=== PATIENT | male | born 1980 | race Caucasian/White ===

== ENCOUNTER 2016-12-13 21:39 | Inpatient (IN) | payer OTHER ==
--- NOTE | ~2016-12-13 | PA ---
Unit #: [id number] #: [id number] Patient: JAMES QUINN [id number] [facility] [address] [place] [address] [id number] I MR#: [id number] NAME: JAMES QUINN ROOM: P214 Age: 36 Sex: M Admission Date: 12/13/2016 : 1980 Date of Assessment: 12/14/2016 Attending Physician: Nico Desai M.D. Admitting Physician: Nico Desai M.D. Primary Care Physician: Primary Care Physician No PSYCHIATRIC ASSESSMENT INFORMANTS The patient reliability, fair informant and chart reliability, good. CHIEF COMPLAINT Heroin addiction and heroin withdrawal. HISTORY OF PRESENT ILLNESS Mr. James Quinn is a 36-year-old male, presented with the above-mentioned complaint. The patient reports a history of outpatient services in the past for depression. Lives at home with his and son. The patient reports heroin use, average about 1 g IV. The patient reported consistently used over the last 30 days. The patient reported last use on 12/12/2016. The patient scored initial COWS of 14. The patient denied any current suicidal or homicidal ideation. Denied any psychotic symptom. The patient reported tobacco use, age of onset 12; alcohol, age of onset 12; marijuana, age of onset 10; crack cocaine, age of onset 20; LSD, age of onset 14; opioid, age of onset 29; amphetamine use, age of onset 18; and benzodiazepine, age of onset 14. The patient reported currently having withdrawal symptoms. No history of blackout. History of IV drug use. No history of HIV or hepatitis. Withdrawal symptoms such as abdominal cramping, muscle cramping, diaphoresis, diarrhea, irritability, nervousness, poor appetite, poor concentration, restlessness, rhinorrhea, sleep problems, and tremors. PAST PSYCHIATRIC HISTORY Remarkable for history of outpatient treatment as mentioned above. No history of any inpatient treatment. FAMILY HISTORY AND SOCIAL HISTORY The patient has a good support system from family. No history of abuse. MEDICAL HISTORY Unremarkable for any chronic medical illness. Musculoskeletal; muscle strength and tone, no atrophy or abnormal movement. Gait normal. MEDICATION HISTORY None. ALLERGIES No known drug allergies. SUBSTANCE ABUSE HISTORY Unit #: [id number] #: [id number] Patient: JAMES QUINN Please see above. REVIEW OF SYSTEMS HEENT: Eyes, clear. Ears, nose, mouth, and throat; clear. CARDIOVASCULAR: Unremarkable. RESPIRATORY: Unremarkable. GI: Unremarkable. : Unremarkable. SKIN: Unremarkable. LYMPH NODE: Unremarkable. NEUROLOGIC: Unremarkable. ENDOCRINE: Unremarkable. HEMATOLOGIC: Unremarkable. ALLERGIC/IMMUNOLOGIC: Unremarkable. MUSCULOSKELETAL: Muscle strength and tone, no atrophy or abnormal movement. Gait normal except as mentioned above. MENTAL STATUS EXAMINATION CONSTITUTIONAL: Measurement of vital signs; temperature 97.5, heart rate 80, respiratory rate 20, and blood pressure 137/91. Height 6 feet and weight 140 pounds. GENERAL APPEARANCE: The patient dressed casually. The patient did not show any facial deformity. MUSCULOSKELETAL: Please see above. PSYCHIATRIC EXAMINATION Description of speech; regular rate, normal volume, normal articulation, coherent, and spontaneous. Description of thought process, goal directed. Description of association, intact. Description of abnormal psychotic thinking; the patient denied any hallucination or delusions, but mood lability, withdrawal symptom, and substance abuse. Description of the patient's judgment: Concerning everyday activity, poor. Social situation, poor. Concerning psychiatric condition, poor. Complete mental status examination; oriented in time, place, and person. Recent and remote memory, fair. Attention span and concentration, fair. Language, able to name object and repeat phrases. Fund of knowledge, aware of current event and passive vocabulary intact. Mood and affect, sad and dysphoric. Insight and judgment, fair to poor. ASSETS AND LIABILITIES Assets, the patient is articulate and able to take care of his ADL. Liability, history of substance abuse and depression. ADMITTING DIAGNOSES Psychiatric: Opioid use disorder, severe, F11.20 and mood disorder, not otherwise specified, F32.9. Secondary diagnosis: Deferred. Medical diagnosis: None. Stressors: Psychosocial stressors. PSYCHIATRIC PLAN AND TREATMENT GOAL AND DISCHARGE PLAN 1. Advised to admit the patient on the inpatient unit. Provide safe, supportive, and structured environment. 2. Ordered labs; CBC, CMP, UA, and UDS. Unit #: [id number] #: [id number] Patient: JAMES QUINN 3. Detox protocol and detox monitoring. If needed, consider medication for depression. 4. The patient to attend all the programing, group therapy, individual therapy, and medication management. TREATMENT GOAL To attain euthymic mood, gain insight into his problem, and learn coping skills. DISCHARGE PLAN Plan to stabilize the patient and consider followup in outpatient program. ESTIMATED LENGTH OF STAY 3 to 5 days. Dictated by... Keri Cheema/bj TD: 12/14/2016 17:33 JOB #: [id number] PSYCHIATRIC ASSESSMENT Page 1 of 1 X Nico Desai MD X PSYCHIATRIC ASSESSMENT
--- NOTE | ~2016-12-13 | DS ---
Unit #: [id number] #: [id number] Patient: JAMES DONOHUE [id number] [facility] [address] [place] [address] [id number] I MR#: [id number] NAME: JAMES DONOHUE ROOM: [facility] Age: 36 Sex: M Admission Date: 12/13/2016 : 1980 Discharge Date: 12/15/2016 Attending Physician: Nico Desai M.D. Primary Care Physician: Primary Care Physician No DISCHARGE SUMMARY REASON FOR ADMISSION Heroin addiction. DIAGNOSTIC STUDIES LABORATORY DATA: Urine drugs screen positive for marijuana and opiate. HOSPITAL COURSE The patient was admitted to inpatient unit on December 13 and discharged on 12/15/2016. The patient was treated with group therapy, individual therapy, medication management, detox monitoring, and detox protocol. The patient responded well with the above modalities of treatment. Subsequently the patient was discharged with a plan to follow up in outpatient program. DISCHARGE MEDICATIONS None. DISCHARGE DIAGNOSES PSYCHIATRIC: Opiate use disorder, moderate to severe, F11.20 Cannabis abuse, moderate, F12.20. Mood disorder not otherwise specified, F32.9. SECONDARY: Deferred. MEDICAL: None. STRESSORS: Psychosocial stressor. FOLLOWUP CARE The patient to follow up in outpatient clinic as per social service coordinator. CONDITION ON DISCHARGE The patient pleasant, cooperative. Denied any psychotic symptom or any suicidal ideation. behavior. PROGNOSIS Guarded. DIET AND ACTIVITY As tolerated. Dictated by... Nico Desai M.D. SZC/bzg Unit #: [id number] #: [id number] Patient: JAMES DONOHUE TD: 12/16/2016 07:05 JOB #: [id number] DISCHARGE SUMMARY Page 1 of 1 X Nico Desai MD X DISCHARGE SUMMARY
--- NOTE | ~2016-12-13 | HP ---
Unit #: [id number] #: [id number] Patient: JAMES DONOHUE [id number] [facility] [address] [place] [address] [id number] I MR#: [id number] NAME: JAMES DONOHUE ROOM: P214 Age: 36 Sex: M Admission Date: 12/13/2016 : 1980 Attending Physician: Nico Desai M.D. Admitting Physician: Nico Desai M.D. Primary Care Physician: Primary Care Physician No HISTORY AND PHYSICAL HISTORY OF PRESENT ILLNESS is a 36 year old admitted to [address] [place] [address] because of his drug use. He shoots heroin. PAST MEDICAL HISTORY Long history of opioid abuse to include IV heroin. PAST SURGICAL HISTORY Nothing reported. ALLERGIES No known drug allergies. SOCIAL HISTORY Smokes 1 pack per day. Denies alcohol. Admits to a long history of opioid abuse to include IV heroin. FAMILY HISTORY Medically noncontributory. REVIEW OF SYSTEMS CONSTITUTIONAL: No fever or chills. HEENT: Denies any sore throat, ear pain or runny nose. CARDIOVASCULAR: Denies chest pain, irregular heart rhythm or palpitations. CHEST: Denies shortness of breath or cough. No hemoptysis. GASTROINTESTINAL: Denies nausea, vomiting, diarrhea or chronic constipation. ENDOCRINE: Denies history of increased thirst or urination. No recent significant weight loss or gain. GENITOURINARY: Denies dysuria, frequency, or hematuria. SKIN: Denies any rashes. HEMATOLOGIC: Denies history of increased bleeding or bruising. MUSCULOSKELETAL: Denies any hot, swollen joints. No generalized muscle pain. NEUROLOGIC: Denies problems with vision or speech. No frequent, severe headaches. No numbness, tingling or weakness in any extremities. Denies loss of bladder or bowel control. CURRENT MEDICATIONS Detox protocol. PHYSICAL EXAMINATION GENERAL: Alert, well-nourished, in no apparent distress. Unit #: [id number] #: [id number] Patient: JAMES DONOHUE VITAL SIGNS: Blood pressure 136/90, heart rate 80, respirations 16, temperature 98.6. WEIGHT: 140. HEIGHT: 6 feet 0 inches. SKIN: Warm and dry without rash or lesion. HEENT: Normocephalic. TMs not viewed. Oral and nasal passages clear. Conjunctivae clear. PERRLA. EOMs intact. NECK: Supple without lymphadenopathy or thyromegaly. HEART: Regular rate and rhythm without murmur. LUNGS: Clear. ABDOMEN: Soft, nontender. : Not done. EXTREMITIES: No evidence of cyanosis, clubbing or edema. Moves all without focal deficit. NEUROLOGICAL: Grossly within normal limits. Cranial Nerves: II: Visual mcdaniel are intact. III, IV AND : Extraocular movements are intact. Pupils are equal, round and reactive to light. V: Facial sensation is grossly normal. VII: Facial movements and expression are normal. VIII: Auditory acuity grossly intact. IX, X: Uvula is midline. Phonation is normal. XI: Patient shrugs shoulders and turns head normally. XII: Tongue protrudes in the midline. Sensory and Motor Function: Sensory and motor sensation is grossly normal. Motor: moves all extremities well. Coordination: Gait is normal. Deep Tendon Reflexes: Intact. IMPRESSION Psychiatric admission. RECOMMENDATIONS PSYCHIATRIC: Per psychiatrist. MEDICAL: See no contraindications to participate in facility's activities. MEDICAL PROGNOSIS Good. MEDICAL CONDITION Stable. Dictated by... Radha TannerAPaola. for Keri Torrez/ender TD: 12/14/2016 21:03 JOB #: [id number] Unit #: [id number] #: [id number] Patient: JAMES DONOHUE HISTORY AND PHYSICAL Page 1 of 1 X Shraddha Villarreal X HISTORY AND PHYSICAL
[2016-12-14 09:45] LABS: BASOPHIL% 0.7 % (0-2.5); EOSINOPHIL# 0.1 X10e3 (0-0.7); EOSINOPHIL% 1.8 % (0.0-7.0); HEMATOCRIT 43.5 % (38.0-50.0); HEMOGLOBIN 14.5 gm/dL (13.0-16.0); LYMPHOCYTE# 1.8 X10e3 (1.0-3.5); LYMPHOCYTE% 27.2 % (17.0-45.0); MEAN CELL VOLUME 83.2 FL (83-96); MEAN CORPUSCULAR HEMOGLOBIN 27.7 PG (28-34); MEAN CORPUSCULAR HGB CONC 33.3 g/dL (30-36); MEAN PLATELET VOLUME 10.1 FL (6.5-11.5); MONOCYTE# 0.4 X10e3 (0-1.0); MONOCYTE% 5.8 % (3.0-12.0); NEUTROPHIL# 4.2 X10e3 (1.5-7.1); NEUTROPHIL% 64.5 % (40-75); PLATELET COUNT 143 X10e3 (140-420); RED BLOOD COUNT 5.23 X10e (3.90-5.60); RED CELL DISTRIBUTION WIDTH 13.4 % (11.0-15.5); WHITE BLOOD COUNT 6.4 X10e3 (4.0-10.5)
[2016-12-14 09:55] LABS: DIFF IND NO
[2016-12-14 10:01] LABS: ALBUMIN SERUM 3.3 g/dL (3.5-5.0); BILIRUBIN,TOTAL 0.9 mg/dL (0.2-2.0); BUN/CREATININE RATIO 11.42; CALCIUM SERUM 9.4 mg/dL (8.4-10.2); CREATININE SERUM 0.7 mg/dL (0.6-1.4); GLOM FILT RATE Estimated 119.8 mL/min (>60); POTASSIUM 3.9 mmol/L (3.5-5.1); PROTEIN TOTAL SERUM 7.1 g/dL (6.0-8.3)
[2016-12-15 09:40] LABS: URINE APPEARANCE TURBID; URINE BILIRUBIN NEG (NEG); URINE BLOOD 1+ (NEG); URINE COLOR DK YELLOW; URINE GLUCOSE NEG (NEG); URINE KETONE NEG (NEG); URINE LEUKOCYTE ESTERASE 3+ (NEG); URINE NITRATE POS (NEG); URINE PROTEIN TRACE (NEG); URINE SPECIFIC GRAVITY 1.017 (1.003-1.035)
[2016-12-15 09:42] LABS: URINE BACTERIA AUWI 4+ (NEGATIVE); URINE SQUAMOUS EPITHELIAL CELL NONE SEEN /[HPF]; UWBCS1 AUWI INNUM (0-5)
[2016-12-15 10:24] LABS: URINE AMORPHOUS SEDIMENT AMORP URATES; URINE MUCUS PRESENT
[2016-12-15 10:46] LABS: AMPHETAMINE NEG (NEG); BARBITURATES NEG (NEG); BENZODIAZEPINES NEG (NEG); COCAINE NEG (NEG); MARIJUANA POS (NEG); OPIATES POS (NEG); TRICYCLIC ANTIDEPRESSANTS NEG (NEG); U METHADONE NEG (NEG)
[2016-12-20 02:15] LABS: HA AB IGM (HEPPAN) Nonreactive (()); HB CORE AB IGM (HEPPAN) Reactive (Nonreactive); HB S AG (HEPPAN) Reactive (Nonreactive); HEP C AB (HEPPAN) Nonreactive (Nonreactive); HEP C AB SIGNAL TO CUTOFF 0.13 ratio (<1.00)
== END 2016-12-15 10:20 | disposition home or self-care (01) | DRG 897 ==
LOC: P2S 21:39
PROVIDERS: Psychiatry & Neurology Psychiatry
PROC: HZ2ZZZZ Detoxification Services for Substance Abuse Treatment (ICD-10-PCS; principal; 2016-12-13)
DX: F11.20 Opioid dependence, uncomplicated (principal); F39 Unspecified mood [affective] disorder; F32.9 Major depressive disorder, single episode, unspecified; F17.210 Nicotine dependence, cigarettes, uncomplicated; F12.20 Cannabis dependence, uncomplicated
CPT/HCPCS: 80053; 80074; 80307; 81003; 85025; 86592; 87806

== ENCOUNTER 2016-12-24 15:39 | Emergency (ER) | payer SELFPAY | END 2016-12-24 16:49 | disposition home or self-care (01) | LOC: SED 15:39 | DX: T40.1X1A Poisoning by heroin, accidental (unintentional), initial encounter (principal); F11.10 Opioid abuse, uncomplicated; F15.10 Other stimulant abuse, uncomplicated; I10 Essential (primary) hypertension; F17.210 Nicotine dependence, cigarettes, uncomplicated | CPT/HCPCS: 99283 ==

== ENCOUNTER 2017-04-11 13:54 | Emergency (ER) | payer SELFPAY ==
[2017-04-11] MEDS ORDERED: NO MEDICATIONS (13:56)
== END 2017-04-11 16:38 | disposition home or self-care (01) ==
LOC: SED 13:54
DX: F11.129 Opioid abuse with intoxication, unspecified (principal); F41.9 Anxiety disorder, unspecified; I10 Essential (primary) hypertension; F17.210 Nicotine dependence, cigarettes, uncomplicated
CPT/HCPCS: 99283